=== PATIENT | female | born 1950 | race Caucasian/White ===

== ENCOUNTER → 2020-08-13 09:31 | Outpatient (BNVA) | payer MEDICARE, SELFPAY | PROVIDERS: Visit Provider Nurse Practitioner Family | DX: E03.9 Hypothyroidism, unspecified (principal) | CPT/HCPCS: 80061; 84443; 85025 ==

== ENCOUNTER 2020-09-02 20:00 | Outpatient (CLI) | payer MEDICARE, SELFPAY | END 2020-09-02 20:01 | disposition home or self-care (01) | LOC: SLEEP 09-03 08:52 | PROVIDERS: Visit Provider Nurse Practitioner Family | DX: G47.30 Sleep apnea, unspecified (principal) | CPT/HCPCS: 95810 ==

== ENCOUNTER 2020-10-09 20:00 | Outpatient (CLI) | payer MEDICARE, SELFPAY | END 2020-10-09 20:01 | disposition home or self-care (01) | LOC: SLEEP 10-10 08:14 | PROVIDERS: Visit Provider Nurse Practitioner Family | DX: G47.33 Obstructive sleep apnea (adult) (pediatric) (principal) | CPT/HCPCS: 95811 ==

== ENCOUNTER → 2020-12-06 09:05 | Outpatient (BNVA) | payer MEDICARE, SELFPAY | PROVIDERS: PCP Nurse Practitioner Family; Visit Provider Nurse Practitioner Family | DX: E78.1 Pure hyperglyceridemia (principal) | CPT/HCPCS: 84478 ==

== ENCOUNTER 2020-12-09 14:32 | Outpatient (CLI) | payer MEDICARE, SELFPAY ==
--- NOTE | 2020-12-09 14:45 | XRR_ITS ---
PROCEDURE INFORMATION: Exam: XR Left Knee Exam date and time: 12/09/2020 3:08 PM Age: 70 years old Clinical indication: Pain; Knee; Left; Patient HX: Arthritis per PT and getting worse; Additional info: M25.562 - pain in left knee TECHNIQUE: Imaging protocol: XR Left knee. Views: 3 views. COMPARISON: No relevant prior studies available. FINDINGS: Bones/joints: No fractures. Unremarkable alignment. Negative for joint effusion. Advanced osteoarthritis features throughout knee joint. Severe medial compartment joint space loss. Marginal osteophytes in each compartment. No aggressive bone lesion. Soft tissues: Normal. Vasculature: Scattered atherosclerotic wall plaque. XR/XR knee LT 3V* [id number] IMPRESSION: 1. Negative for acute left knee joint abnormality. 2. Severe osteoarthritis changes.
== END 2020-12-09 14:33 | disposition home or self-care (01) ==
PROVIDERS: PCP Nurse Practitioner Family; Visit Provider Nurse Practitioner Family
DX: M25.562 Pain in left knee (principal)
CPT/HCPCS: 73562

== ENCOUNTER 2020-12-31 15:52 | Outpatient (CLI) | payer MEDICARE, SELFPAY ==
--- NOTE | 2020-12-31 16:45 | MR_ITS ---
WS: [id number] MRI LEFT KNEE HISTORY: M25.562 - Pain in left knee COMPARISON: 12/09/2020 radiographs Anterior cruciate ligament: Increased signal and thinning of the ACL. There is fluid around the ACL w ithin the intercondylar notch Posterior cruciate ligament: Intact. Medial collateral ligament: Increased T2 signal around the MCL with mild separation of the MCL from t he tibia. No full-thickness tear. Posterior lateral corner structures: Intact. Medial menisci: Anterior and posterior horns are abnormal. Menisci are abnormal shape and signal with a very small truncated anterior horn and complex tears in the posterior horn towards the meniscal ro ot. Lateral meniscus: Blunting of the free edge of both the anterior and posterior horns most likely due to radial tears. Extensor mechanism: Distal quadriceps tendon and patellar tendons are intact. Fluid and soft tissue: Small suprapatellar joint effusion. Small Granger's cyst. Osseous and articular structures: Patellofemoral compartment: Mild narrowing of patellofemoral joint with small osteophytes. Complete l oss of cartilage. No marrow edema or fracture. Medial compartment: Moderate narrowing medial compartment with osteophytes from the joint line. Loss of cartilage with marrow edema on both sides of the joint. Partially extruded meniscus and osteophyte s displace the MCL. Lateral compartment: Moderate narrowing of the lateral compartment with loss of cartilage. Osteophyte s along the joint line. No marrow edema. There are osteophytes extend into the intercondylar notch of the femoral condyles which are contactin g the ACL and PCL. MR/MR knee LT wo con* [id number] IMPRESSION: 1. Moderate medial and lateral compartment internal derangement. 2. Complete to near complete loss of cartilage within the patellofemoral, medi al and lateral compartments. 3. Osteophytes from the femoral condyles extend into the intercondylar notch c ontacting the ACL and PCL. Most significantly involving the ACL where there is probably a partial tear. 4. Small Granger's cyst and small joint effusion. 5. Complex tears involving the anterior and posterior horns of the medial meni scus. 6. Blunting of the free edges both the anterior and posterior horns of the lat eral compartment, likely radial tears.
== END 2020-12-31 15:53 | disposition home or self-care (01) ==
PROVIDERS: PCP Nurse Practitioner Family; Visit Provider Nurse Practitioner Family
DX: M23.92 Unspecified internal derangement of left knee (principal); M25.762 Osteophyte, left knee; M71.22 Synovial cyst of popliteal space [Baker], left knee; S83.232A Complex tear of medial meniscus, current injury, left knee, initial encounter; X58.XXXA Exposure to other specified factors, initial encounter
CPT/HCPCS: 73721

== ENCOUNTER → 2021-01-02 12:51 | Outpatient (BNVA) | payer MEDICARE, SELFPAY | PROVIDERS: PCP Nurse Practitioner Family; Referring Provider Nurse Practitioner Family; Visit Provider Anesthesiology Pain Medicine | DX: G89.29 Other chronic pain (principal); M47.814 Spondylosis without myelopathy or radiculopathy, thoracic region; M54.9 Dorsalgia, unspecified; F17.210 Nicotine dependence, cigarettes, uncomplicated; Z79.899 Other long term (current) drug therapy | CPT/HCPCS: 99204 ==

== ENCOUNTER 2021-01-03 11:00 | Emergency (ER) | payer MEDICARE, SELFPAY ==
[2021-01-03 11:21] VITALS: BP 151/60; PULSE 58; RESP 16; TEMP 36.5; O2SAT 96; BMI 30.9
[2021-01-03 11:33] VITALS: BP 163/75; PULSE 60; RESP 16; O2SAT 98
--- NOTE | 2021-01-03 11:47 | XR_ITS ---
WS: [id number] PORTABLE CHEST HISTORY: weakness COMPARISON: None available. Mild hyperexpansion. No pleural effusion or pneumothorax. Cardiac size: Normal. Mediastinum/Aorta: Normal mediastinum. No osseous abnormality seen. XR/XR chest 1V portable [id number] IMPRESSION: Mild emphysema. No acute cardiopulmonary disease.
--- NOTE | 2021-01-03 11:52 | W.ED.GENADLT ---
HPI - General Adult General: Chief complaint: General Medical Stated complaint: rash Time Seen by Provider: 01/03/21 11:19 Source: patient Mode of arrival: ambulatory Limitations: no limitations History of Present Illness: HPI narrative: This is a 70-year-old female who has been having skin issues for about 2 years. She has been on topical steroids, first triamcinolone, then clobetasol. She has not obtained significant improvement. She has an appointment scheduled with a solar panel installation supervisor but is not until 4 months from now. She woke up today feeling tired, a little weak and short of breath. No fever, no cough, no chest pain. She is here to be evaluated. Associated symptoms: Reports short of breath and weakness; Deny chest pain, confusion, cough, diaphoresis, decreased appetite, dyspnea, fevers/chills, headache(s), malaise, nausea, rash, palpitations, seizures, syncope or vomiting Treatments prior to arrival: none Review of Systems General: Reports: 10 or more systems reviewed and unremarkable except in HPI and below Const: Denies: malaise or diaphoresis Card: Denies: chest pain, palpitations or syncope Resp: Denies: dyspnea GI: Denies: nausea or vomiting Skin/Breast: Denies: rash Neuro: Denies: headache(s) or confusion PFSH ED PFSH: Medical History Bipolar affect, depressed Fibromyalgia Hypothyroidism Psoriasis Thoracic degenerative disc disease Family History Grandmother Cancer Mother Cancer Other Hypertension Social History Smoking and tobacco status: current every day smoker cigarettes Alcohol intake: former Lives independently: Yes History of recent travel: No Physical Exam Const: COMMON NORMALS: no acute distress, average body habitus, patient oriented x3, no limitations, healthy appearing, alert and well nourished HENMT: COMMON NORMALS: normocephalic, atraumatic and moist oral mucous membranes HEAD & SCALP: normocephalic and atraumatic Neck/C-Spine: COMMON NORMALS: no meningeal signs and no JVD Resp: COMMON NORMALS: normal respiratory effort, No retractions, No use of accessory muscles, clear to auscultation bilaterally and percussion normal AUSCULTATION: clear to auscultation bilaterally PERCUSSION: percussion normal Cardio: COMMON NORMALS: no JVD, regular rate, regular rhythm, S1 normal heart sound present, S2 normal heart sound present, No gallops present (Cardio), No clicks present (Cardio), No murmurs present (Cardio), No rub (Cardio) and Peripheral pulses 2+ throughout RATE: regular rate RHYTHM: regular rhythm HEART SOUNDS: S1 normal heart sound present and S2 normal heart sound present PERIPHERAL PULSES: Peripheral pulses 2+ throughout GI: COMMON NORMALS: Normal to inspection, nondistended, normoactive bowel sounds present, Soft to palpation, non-tender, No hepatosplenomegaly present, no masses and no bruits PALPATION: Yes Soft to palpation and Yes No hepatosplenomegaly present Extremity: COMMON NORMALS: normal to inspection, full ROM, capillary refill normal, no calf tenderness and no pedal edema Neuro: COMMON NORMALS: patient oriented x3 SENSORIUM/ORIENTATION: Yes alert MENINGEAL SIGNS: Yes no meningeal signs Skin: COMMON NORMALS: no wounds, turgor normal, no jaundice, no petechiae and no mottling GENERAL SKIN EXAM: turgor normal RASHES: rashes noted plaque Rash type: Yes plaque Rash distribution: Yes symmetrical and Yes other (widespread) Rash color: Yes silvery and Yes erythematous base Rash shape: Yes round Rash consistency: Yes indurated Rash surface: Yes dry and Yes shiny Rash border: Yes raised and Yes sharp Rash tenderness: Yes nontender Rash findings consistent with: Yes psoriasis Course Reevaluation(s): Reevaluation #1: 70-year-old female patient who presents to the emergency department with a rash consistent with psoriasis. It significant on its widespread and she has an appointment with a solar panel installation supervisor but it is in 4 months. The sample case porter in the ED was able to get the appointment moved up by 2 months. She is advised that she probably needs some Biologics and for that she will need to see the solar panel installation supervisor. She voiced understanding and is in agreement with the plan. Time: 13:26 Vital Signs: Vital signs: Vital Signs Temperature 97.7 F 01/03/21 11:21 Pulse Rate 60 01/03/21 11:33 Respiratory Rate 16 01/03/21 11:33 Blood Pressure 163/75 01/03/21 11:33 Pulse Oximetry 98 01/03/21 11:33 MDM - General Adult MDM Narrative: Medical decision making narrative: 70-year-old female with clinical features consistent with psoriasis. She is on topical steroids. She has an appointment with a solar panel installation supervisor in 4 months and we were able to get it moved up by 2 months. She is advised to continue her current management and to follow-up with your solar panel installation supervisor for further evaluation and management. She likely needs Biologics. She also had nonspecific symptoms of feeling unwell today but evaluation in the emergency department does not show an acute cause for her symptoms. Medical Records: Attestation: I reviewed the patient's medical records. Lab Data: Attestation: I reviewed the patient's lab results. Labs: Lab Results 01/03/21 01/03/21 01/03/21 Range/Units 11:45 11:45 11:45 WBC 10.6 H (4.0-10.0) 10^3/ uL RBC 4.67 (4.1-5.3) 10^6/u L Hgb 14.7 (11.5-15.3) g/dL Hct 47.6 H (37.0-47.0) % MCV 101.9 H (81-99) fL MCH 31.5 (28.0-34.0) pg MCHC 30.9 (30.0-36.0) g/dL RDW 12.8 (12.1-15.1) % Plt Count 208 (130-400) 10^3/c mm MPV 12.4 H (7.4-10.4) fL Neut % (Auto) 60.1 % Lymph % (Auto) 29.2 % Will % (Auto) 5.5 % Eos % (Auto) 4.1 % Baso % (Auto) 0.9 % Neut # (Auto) 6.38 (1.8-7.7) 10^3/u L Lymph # (Auto) 3.1 (0.8-4.8) 10^3/u L Will # (Auto) 0.6 (0.2-0.9) 10^3/u L Eos # (Auto) 0.4 (0.0-0.8) 10^3/u L Baso # (Auto) 0.1 (0.0-0.1) 10^3/u L Nucleated RBC % (a uto) 0 % Nucleated RBCs # 0.0 /100WBC Sodium 141 (136-145) mmol/L Potassium 4.7 (3.5-5.1) mmol/L Chloride 103 (98-107) mmol/L Carbon Dioxide 27 (22-29) mmol/L Anion Gap 15.7 (5-19) BUN 16 (8-23) mg/dL Creatinine 1.0 H (0.5-0.9) mg/dL GFR Calculation 55.1 L (90-130) mL/min Glucose 104 (65-115) mg/dL Calculated Osmolal ity 293 (285-295) mOsm/k g Lactate 1.5 (0.5-2.2) mmol/L Calcium 9.5 (8.5-10.5) mg/dL Total Bilirubin 0.3 (0.15-1.2) mg/dL AST 16 (0-32) U/L ALT 16 (0-33) U/L Alkaline Phosphata se 96 (35-105) IU/L Creatine Kinase 85 (26-192) U/L C-Reactive Protein 9.7 H (0.0-4.9) mg/L Total Protein 7.6 (6.6-8.7) g/dL Albumin 4.8 (3.5-5.2) g/dL Globulin 2.8 (1.3-4.6) g/dL TSH 3.79 (0.27-4.20) uIU/ mL Urine Color (Yellow) Urine Appearance (CLEAR) Urine pH (5-7) Ur Specific Gravit y (1.005-1.030) Urine Protein (Negative) Urine Glucose (UA) (Normal) Urine Ketones (Negative) Urine Blood (Negative) Urine Nitrate (Negative) Urine Bilirubin (Negative) Urine Urobilinogen (Negative) mg/dL Ur Leukocyte Nazanin ase (Negative) 01/03/21 Range/Units 13:00 WBC (4.0-10.0) 10^3/ uL RBC (4.1-5.3) 10^6/u L Hgb (11.5-15.3) g/dL Hct (37.0-47.0) % MCV (81-99) fL MCH (28.0-34.0) pg MCHC (30.0-36.0) g/dL RDW (12.1-15.1) % Plt Count (130-400) 10^3/c mm MPV (7.4-10.4) fL Neut % (Auto) % Lymph % (Auto) % Will % (Auto) % Eos % (Auto) % Baso % (Auto) % Neut # (Auto) (1.8-7.7) 10^3/u L Lymph # (Auto) (0.8-4.8) 10^3/u L Will # (Auto) (0.2-0.9) 10^3/u L Eos # (Auto) (0.0-0.8) 10^3/u L Baso # (Auto) (0.0-0.1) 10^3/u L Nucleated RBC % (a uto) % Nucleated RBCs # /100WBC Sodium (136-145) mmol/L Potassium (3.5-5.1) mmol/L Chloride (98-107) mmol/L Carbon Dioxide (22-29) mmol/L Anion Gap (5-19) BUN (8-23) mg/dL Creatinine (0.5-0.9) mg/dL GFR Calculation (90-130) mL/min Glucose (65-115) mg/dL Calculated Osmolal ity (285-295) mOsm/k g Lactate (0.5-2.2) mmol/L Calcium (8.5-10.5) mg/dL Total Bilirubin (0.15-1.2) mg/dL AST (0-32) U/L ALT (0-33) U/L Alkaline Phosphata se (35-105) IU/L Creatine Kinase (26-192) U/L C-Reactive Protein (0.0-4.9) mg/L Total Protein (6.6-8.7) g/dL Albumin (3.5-5.2) g/dL Globulin (1.3-4.6) g/dL TSH (0.27-4.20) uIU/ mL Urine Color Yellow (Yellow) Urine Appearance Clear (CLEAR) Urine pH 5 (5-7) Ur Specific Gravit y 1.010 (1.005-1.030) Urine Protein Neg (Negative) Urine Glucose (UA) Norm (Normal) Urine Ketones Negative (Negative) Urine Blood Neg (Negative) Urine Nitrate Negative (Negative) Urine Bilirubin Neg (Negative) Urine Urobilinogen Norm (Negative) mg/dL Ur Leukocyte Nazanin ase Negative (Negative) Imaging Data^: CXR: Attestation: I personally reviewed and interpreted this imaging study as follows: Radiologist's impression: [address] [address] ReportSigned Patient: Nestor Hester #: [id number]: 1950cct#:[id number]/Sex: 70 / FADM Date: 01/03/21Loc: ERRoo/Bed:Attending Dr: Ordering Provider/Ordering MD: Carri Crow MD, [facility] [place] Date of Service: 01/03/21 Procedure(s): XR chest 1V portable [id number] Accession Number(s): [id number] Report Number: [id number] WS: [id number] PORTABLE CHEST HISTORY: weakness COMPARISON: None available. Mild hyperexpansion. No pleural effusion or pneumothorax. Cardiac size: Normal. Mediastinum/Aorta: Normal mediastinum. No osseous abnormality seen. XR/XR chest 1V portable [id number] IMPRESSION: Mild emphysema. No acute cardiopulmonary disease. Dictated By:Brigette Nails DOSigned By:Brigette Nails DOSigned Date/Time:01/03/21 1202DD/ 1158 Discharge Plan Discharge Patient Disposition: Home Clinical Impression: Psoriasis Condition: Stable Prescriptions: Continued simvastatin [Zocor] 40 mg tablet 40 mg PO DAILY Qty: 90 RF: 1 levothyroxine [Synthroid] 100 mcg tablet 100 mcg PO DAILY Qty: 90 RF: 1 diclofenac sodium 75 mg tablet,delayed release (DR/EC) 75 mg PO BID Qty: 180 RF: 1 tizanidine 2 mg tablet 2 mg PO Q8H PRN (Reason: muscle spasms) RF: 0 gabapentin 300 mg capsule 300 mg PO TID Qty: 90 RF: 0 aspirin 325 mg tablet 325 mg PO DAILY RF: 0 omeprazole 40 mg capsule,delayed release(DR/EC) 40 mg PO DAILY PRN (Reason: Acid Reflux) RF: 0 clobetasol 0.05 % cream 1 applic topical BID 14 Days Qty: 60 RF: 1 Discharge Orders: Discharge ED (Routine); Ordered 01/03/21 Ordered By: Carri Crow Referrals: Sonal Matt FNP [Primary Care Provider] - 1-3 days Discharge Diet: Usual diet Discharge Activity: Increase activity as tolerated Patient Instructions: Psoriasis (ED) Activity Restrictions/Additional Instructions: Return for any new or worsening symptoms. Continue your medications as prescribed. You will be contacted to schedule an appointment with dermatology and to see if we can get one sooner than April. Follow-up with your primary care provider within 3 days. Coding Level of Care Code ED Medical Communication Specialist for [employer] Fwd Exam Comprehensive
[2021-01-03 12:25] LABS: Basophils # 0.1 10^3/uL (0.0-0.1); Basophils % 0.9 %; Eosinophils # 0.4 10^3/uL (0.0-0.8); Eosinophils % 4.1 %; Hematocrit 47.6 % (37.0-47.0); Hemoglobin 14.7 g/dL (11.5-15.3); Lymphocytes # 3.1 10^3/uL (0.8-4.8); Lymphocytes % 29.2 %; Mean Corpuscular HGB Conc 30.9 g/dL (30.0-36.0); Mean Corpuscular Hemoglobin 31.5 pg (28.0-34.0); Mean Corpuscular Volume 101.9 fL (81-99); Mean Platelet Volume 12.4 fL (7.4-10.4); Monocytes # 0.6 10^3/uL (0.2-0.9); Monocytes % 5.5 %; Neutrophils # 6.38 10^3/uL (1.8-7.7); Neutrophils % 60.1 %; Nucleated Red Blood Cells % 0 %; Platelet Count 208 10^3/cmm (130-400); Red Blood Count 4.67 10^6/uL (4.1-5.3); Red Cell Distribution Width 12.8 % (12.1-15.1); White Blood Count 10.6 10^3/uL (4.0-10.0)
[2021-01-03 12:38] LABS: Lactate (Lactic Acid level) 1.5 mmol/L (0.5-2.2)
[2021-01-03 12:49] LABS: Alanine Aminotransferase 16 U/L (0-33); Albumin Level 4.8 g/dL (3.5-5.2); Alkaline Phosphatase 96 IU/L (35-105); Anion Gap 15.7 (5-19); Aspartate Amino Transferase 16 U/L (0-32); Blood Urea Nitrogen 16 mg/dL (8-23); C Reactive Protein 9.7 mg/L (0.0-4.9); Calcium 9.5 mg/dL (8.5-10.5); Carbon Dioxide 27 mmol/L (22-29); Chloride 103 mmol/L (98-107); Creatine Phosphokinase 85 U/L (26-192); Globulin 2.8 g/dL (1.3-4.6); Glomerular Filtration Rate 55.1 mL/min (90-130); Glucose 104 mg/dL (65-115); Osmolality Calculated 293 mOsm/kg (285-295); Potassium 4.7 mmol/L (3.5-5.1); Sodium 141 mmol/L (136-145); Thyroid Stimulating Hormone 3.79 uIU/mL (0.27-4.20); Total Bilirubin 0.3 mg/dL (0.15-1.2); Total Protein 7.6 g/dL (6.6-8.7)
[2021-01-03 13:07] LABS: Add Urine Microscopic? NO; Charge for UA Resulting for Rev
[2021-01-03 13:14] LABS: Bilirubin Urine Neg (Negative); Blood Urine Neg (Negative); Glucose Urine UA Norm (Normal); Ketones Urine Negative (Negative); Leukocyte Esterase Urine Negative (Negative); Nitrate Urine Negative (Negative); Protein Urine Neg (Negative); Urine Appearance Clear (CLEAR); Urine Color Yellow (Yellow); Urobilinogen Urine Norm (Negative); pH Urine 5 (5-7)
--- NOTE | 2021-01-03 14:16 | DCPLANNER ---
distributed generation project manager had message to schedule a follow up appointment for patient with dermatology. distributed generation project manager called the dermatology clinic, gave clinic patients information. A follow up appointment was scheduled for , March 06, 2021 at 3:[address] Fang. distributed generation project manager called patient and gave patient the appointment information.
--- NOTE | 2021-03-28 12:08 | DCPLANNER ---
Patient had a follow up appointment scheduled with dermatology - patient did attend appointment.
== END 2021-01-03 13:45 | disposition home or self-care (01) ==
PROVIDERS: Emergency Provider Family Medicine; PCP Nurse Practitioner Family
DX: L40.9 Psoriasis, unspecified (principal); Z79.82 Long term (current) use of aspirin; F17.210 Nicotine dependence, cigarettes, uncomplicated; E03.9 Hypothyroidism, unspecified
CPT/HCPCS: 71045; 80053; 81003; 82550; 83605; 84443; 85025; 86140; 96374; 99283; J2930

== ENCOUNTER → 2021-01-09 09:57 | Outpatient (BNVA) | payer MEDICARE, SELFPAY | PROVIDERS: PCP Nurse Practitioner Family; Visit Provider Nurse Practitioner Family | DX: L40.9 Psoriasis, unspecified (principal); M25.50 Pain in unspecified joint | CPT/HCPCS: 85651; 86038; 86431 ==

== ENCOUNTER → 2021-01-20 10:04 | Outpatient (BNVA) | payer MEDICARE, SELFPAY | PROVIDERS: PCP Nurse Practitioner Family; Visit Provider Anesthesiology Pain Medicine | DX: M54.9 Dorsalgia, unspecified (principal); M47.814 Spondylosis without myelopathy or radiculopathy, thoracic region; F17.210 Nicotine dependence, cigarettes, uncomplicated | CPT/HCPCS: 99213 ==

== ENCOUNTER 2021-02-03 09:20 | Outpatient (CLI) | payer MEDICARE, SELFPAY ==
[2021-02-03 10:05] LABS: Basophils # 0.1 10^3/uL (0.0-0.1); Basophils % 0.8 %; Eosinophils # 0.6 10^3/uL (0.0-0.8); Eosinophils % 5.7 %; Hematocrit 38.7 % (37.0-47.0); Lymphocytes # 2.1 10^3/uL (0.8-4.8); Lymphocytes % 18.4 %; Mean Corpuscular Hemoglobin 31.5 pg (28.0-34.0); Mean Corpuscular Volume 101.6 fL (81-99); Mean Platelet Volume 10.6 fL (7.4-10.4); Monocytes # 0.8 10^3/uL (0.2-0.9); Monocytes % 6.9 %; Neutrophils # 7.59 10^3/uL (1.8-7.7); Neutrophils % 67.8 %; Nucleated Red Blood Cells % 0 %; Platelet Count 201 10^3/cmm (130-400); Red Blood Count 3.81 10^6/uL (4.1-5.3); Red Cell Distribution Width 13.3 % (12.1-15.1); White Blood Count 11.2 10^3/uL (4.0-10.0)
[2021-02-03 10:25] LABS: Alanine Aminotransferase 11 U/L (0-33); Albumin Level 3.7 g/dL (3.5-5.2); Alkaline Phosphatase 83 IU/L (35-105); Anion Gap 12.4 (5-19); Aspartate Amino Transferase 13 U/L (0-32); Blood Urea Nitrogen 13 mg/dL (8-23); Calcium 9.5 mg/dL (8.5-10.5); Carbon Dioxide 30 mmol/L (22-29); Chloride 104 mmol/L (98-107); Chol HDL Ratio 2.83 mg/dL (0.0-4.40); Cholesterol 133 mg/dL (0-200); Globulin 2.5 g/dL (1.3-4.6); Glomerular Filtration Rate 55.1 mL/min (90-130); Glucose 112 mg/dL (65-115); HDL Cholesterol 47 mg/dL (60-100); LDL Cholesterol Calculated 48 mg/dL (50-129); LDL HDL Ratio 1.02 RATIO (0.00-3.22); Osmolality Calculated 295 mOsm/kg (285-295); Potassium 4.4 mmol/L (3.5-5.1); Sodium 142 mmol/L (136-145); Total Bilirubin 0.3 mg/dL (0.15-1.2); Total Protein 6.2 g/dL (6.6-8.7); Triglycerides 191 mg/dL (0-150); Uric Acid 8.5 mg/dL (2.4-5.7)
== END 2021-02-03 09:21 | disposition home or self-care (01) ==
LOC: LAB 09:31
PROVIDERS: PCP Nurse Practitioner Family; Visit Provider Dermatology
DX: L40.9 Psoriasis, unspecified (principal); Z79.899 Other long term (current) drug therapy
CPT/HCPCS: 36415; 80053; 80061; 83735; 84550; 85025

== ENCOUNTER → 2021-02-11 11:06 | Outpatient (BNVA) | payer MEDICARE, SELFPAY | PROVIDERS: PCP Nurse Practitioner Family; Visit Provider Nurse Practitioner Family | DX: Z20.822 Contact with and (suspected) exposure to COVID-19 (principal) | CPT/HCPCS: 87426 ==

== ENCOUNTER → 2021-03-04 09:18 | Outpatient (BNVA) | payer MEDICARE, SELFPAY | PROVIDERS: PCP Family Medicine; Visit Provider Internal Medicine Rheumatology | DX: L40.50 Arthropathic psoriasis, unspecified (principal); L40.0 Psoriasis vulgaris; Z79.899 Other long term (current) drug therapy; E79.0 Hyperuricemia without signs of inflammatory arthritis and tophaceous disease; J06.9 Acute upper respiratory infection, unspecified; Z71.89 Other specified counseling; L40.9 Psoriasis, unspecified; M19.90 Unspecified osteoarthritis, unspecified site; Z11.59 Encounter for screening for other viral diseases; Z11.1 Encounter for screening for respiratory tuberculosis | CPT/HCPCS: 36415; 72100; 72170; 73130; 73630; 86480; 86705; 86706; 86709; 86803; 87340; 87806; 99204 ==

== ENCOUNTER 2021-03-04 10:36 | Outpatient (CLI) | payer MEDICARE, SELFPAY ==
--- NOTE | 2021-03-04 10:53 | XR_ITS ---
WS: [id number] XR hand RT min 3V* [id number] REASON FOR EXAM: M19.90 - Unspecified osteoarthritis, unspecified site FINDINGS: Narrowing of the joint space with subchondral sclerosis involving the DIP and PIP joints of the thumb and fingers. There are large overhanging osteophytes in the third DIP. There is a more severe manifestation of the arthropathy in the metacarpal trapezius joint with signif icant sclerosis, deformity and subluxation. There is a large exostoses from the trapezius. No significant abnormalities of the periarticular soft tissues. No erosions noted. XR/XR hand RT min 3V* [id number] IMPRESSION: Arthropathy compatible with osteoarthritis.
--- NOTE | 2021-03-04 10:53 | XR_ITS ---
WS: [id number] XR foot LT min 3V* [id number] REASON FOR EXAM: M19.90 - Unspecified osteoarthritis, unspecified site FINDINGS: Joint space narrowing and subchondral sclerosis in the DIP and MIP joints of the toes. Mild medial angulation at the carpal metacarpal joint of the great toe with similar arthropathic armendariz ge. No erosions. No periarticular soft tissue abnormality. The bony and joint spaces of the mid and hindfoot are intact. XR/XR foot LT min 3V* [id number] IMPRESSION: Arthropathy of the toes compatible with osteoarthritis.
--- NOTE | 2021-03-04 10:53 | XR_ITS ---
WS: [id number] XR foot RT min 3V* [id number] REASON FOR EXAM: M19.90 - Unspecified osteoarthritis, unspecified site FINDINGS: Joint space narrowing with subchondral sclerosis in the DIP and MIP joints of toes. Previous osteotomy with screw fixation of the distal first metatarsal. Similar arthropathic changes a t the first metatarsal-phalangeal joint. No erosions or periarticular soft tissue abnormality. The bony and joint structures of the midfoot and hindfoot are intact. XR/XR foot RT min 3V* [id number] IMPRESSION: Arthropathy compatible with osteoarthritis.
--- NOTE | 2021-03-04 10:53 | XR_ITS ---
WS: [id number] XR hand LT min 3V* [id number] REASON FOR EXAM: M19.90 - Unspecified osteoarthritis, unspecified site FINDINGS: Mild joint space narrowing with subchondral sclerosis involving the DIP and MIP joints of the fingers and thumb. No focal erosions or other focal bony abnormality. No periarticular soft tissue abnormality. Similar arthropathy in the metacarpal trapezial is joint of the thumb with more significant joint spa ce narrowing, sclerosis, and subluxation. XR/XR hand LT min 3V* [id number] IMPRESSION: Arthropathy compatible with osteoarthritis.
--- NOTE | 2021-03-04 10:53 | XR_ITS ---
WS: [id number] XR pelvis 1-2V* [id number] REASON FOR EXAM: M19.90 - Unspecified osteoarthritis, unspecified site FINDINGS: Mild narrowing of the hip joint spaces bilaterally. Mild osteophytic spurring and subchondral scleros is of the acetabula and femoral heads. No focal bone lesion. No soft tissue abnormality. XR/XR pelvis 1-2V* [id number] IMPRESSION: Mild changes of osteoarthropathy of the hip joints as above.
--- NOTE | 2021-03-04 10:53 | XR_ITS ---
WS: [id number] XR lumbar spine 2-3V* [id number] REASON FOR EXAM: M19.90 - Unspecified osteoarthritis, unspecified site FINDINGS: No significant lumbar vertebral body compression deformity. Mild rotatory scoliosis of the lumbar spine convex right. Mild/moderate narrowing of the intervertebr al disc spaces L1-S1, most prominent at L5-S1. Moderate degenerative changes in the facet joints L4-L5 and L5-S1. 5 mm of anterolisthesis of L5 on S1 which appears to be secondary to spondylolysis at L5-S1. XR/XR lumbar spine 2-3V* [id number] IMPRESSION: Degenerative lumbar disc disease as above. Spondylolisthesis and spondylolysis at L5-S1 as above.
[2021-03-04 12:39] LABS: HIV 1 & 2 Antibody Non-Reactive (Non-Reactiv); HIV 1 & 2 Antigen Non-Reactive (Non-Reactiv)
[2021-03-04 12:50] LABS: Hepatitis A Antibody IgM Non-Reactive (Nonreactive); Hepatitis B Core AB, Total Non-Reactive (Nonreactive); Hepatitis B Surface Antigen Non-Reactive (Nonreactive); Hepatitis C Virus Antibody Non-Reactive (Nonreactive)
[2021-03-04 12:57] LABS: Hepatitis B Surface AB < 3.5 (11.5-1000)
[2021-03-06 15:42] LABS: Quantiferon Mitogen >10.00 IU/mL; Quantiferon Nil 0.03 IU/mL; Quantiferon Plus TB1 0.01 IU/mL; Quantiferon Plus TB2 0.01 IU/mL; Quantiferon TB Gold NEGATIVE (NEGATIVE)
== END 2021-03-04 10:37 | disposition home or self-care (01) ==
LOC: RAD 10:48
PROVIDERS: PCP Family Medicine; Referring Provider Dermatology; Visit Provider Internal Medicine Rheumatology
DX: L40.9 Psoriasis, unspecified (principal); M19.90 Unspecified osteoarthritis, unspecified site; Z79.899 Other long term (current) drug therapy; Z11.59 Encounter for screening for other viral diseases; Z11.1 Encounter for screening for respiratory tuberculosis
CPT/HCPCS: 36415; 72100; 72170; 73130; 73630; 86480; 86705; 86706; 86709; 86803; 87340; 87806

== ENCOUNTER 2021-04-17 13:47 | Outpatient (CLI) | payer MEDICARE, SELFPAY ==
[2021-04-17 14:11] LABS: Basophils # 0.1 10^3/uL (0.0-0.1); Basophils % 0.7 %; Eosinophils # 0.5 10^3/uL (0.0-0.8); Eosinophils % 5.5 %; Hematocrit 41.8 % (37.0-47.0); Hemoglobin 13.1 g/dL (11.5-15.3); Lymphocytes # 2.8 10^3/uL (0.8-4.8); Lymphocytes % 28.2 %; Mean Corpuscular HGB Conc 31.3 g/dL (30.0-36.0); Mean Corpuscular Hemoglobin 31.2 pg (28.0-34.0); Mean Corpuscular Volume 99.5 fl (81-99); Mean Platelet Volume 10.7 fL (7.4-10.4); Monocytes # 0.7 10^3/uL (0.2-0.9); Monocytes % 6.6 %; Neutrophils # 5.77 10^3/uL (1.8-7.7); Neutrophils % 58.7 %; Nucleated Red Blood Cells % 0 %; Platelet Count 189 10^3/cmm (130-400); Red Cell Distribution Width 13.2 % (12.1-15.1); White Blood Count 9.8 10^3/uL (4.0-10.0)
[2021-04-17 14:39] LABS: Alanine Aminotransferase 22 U/L (0-33); Alkaline Phosphatase 85 IU/L (35-105); Anion Gap 14.1 (5-19); Aspartate Amino Transferase 22 U/L (0-32); Blood Urea Nitrogen 14 mg/dL (8-23); Calcium 8.9 mg/dL (8.5-10.5); Carbon Dioxide 26 mmol/L (22-29); Chloride 101 mmol/L (98-107); Globulin 3.1 g/dL (1.3-4.6); Glomerular Filtration Rate 62.3 mL/min (90-130); Glucose 86 mg/dL (65-115); Osmolality Calculated 284 mOsm/kg (285-295); Potassium 4.1 mmol/L (3.5-5.1); Sodium 137 mmol/L (136-145); Total Bilirubin 0.2 mg/dL (0.15-1.2); Total Protein 7.1 g/dL (6.6-8.7)
== END 2021-04-17 13:48 | disposition home or self-care (01) ==
LOC: LAB 13:54
PROVIDERS: PCP Family Medicine; Visit Provider Dermatology
DX: L40.0 Psoriasis vulgaris (principal); Z79.899 Other long term (current) drug therapy
CPT/HCPCS: 36415; 80053; 85025

== ENCOUNTER → 2021-04-25 10:28 | Outpatient (BNVA) | payer MEDICARE, SELFPAY | PROVIDERS: PCP Family Medicine; Visit Provider Anesthesiology Pain Medicine | DX: G89.29 Other chronic pain (principal); M47.814 Spondylosis without myelopathy or radiculopathy, thoracic region | CPT/HCPCS: 99213 ==

== ENCOUNTER → 2025-05-08 09:16 | Outpatient (BNVA) | payer MEDICARE, SELFPAY | PROVIDERS: PCP Family Medicine; Visit Provider Dermatology | DX: L40.0 Psoriasis vulgaris (principal); L82.1 Other seborrheic keratosis; Z79.899 Other long term (current) drug therapy; B07.8 Other viral warts; L57.0 Actinic keratosis | CPT/HCPCS: 17000; 17110; 99204 ==

== ENCOUNTER → 2025-06-07 09:51 | Outpatient (BNVA) | payer MEDICARE, SELFPAY | PROVIDERS: PCP Family Medicine; Visit Provider Dermatology | DX: L40.0 Psoriasis vulgaris (principal); Z79.899 Other long term (current) drug therapy | CPT/HCPCS: 99214 ==

== ENCOUNTER 2025-07-16 14:15 | Outpatient (CLI) | payer MEDICARE, SELFPAY ==
--- NOTE | 2025-07-16 14:19 | CT_ITS ---
WS: [id number] LDCT LUNG CANCER SCREENING HISTORY: NICOTINE DEPENDENCE, CIGARETTES TECHNIQUE: Axial imaging performed from the apices to 1 cm below the costophrenic angles. Coronal and sagittal reformats are submitted with axial MIP series. All CT scans at [facility] use at least one of these dose optimization techniques: automated exposure control; mA and/or kV adjustment per patient size (includes targeted exams where dose is matched to clinical indication); or iterative reconstruction. DLP: 65.12 mGy.cm DIvol: Mean CTDIvol: 1.40 (mGy) COMPARISON: None available. Diagnostic quality: Satisfactory Lungs: Mild pleural scarring at the lung apices. Small peripheral micronodules. No dominant mass. 10 mm groundglass nodule RIGHT upper lobe. Thin linear atelectasis versus scarring at the lung bases. Small amount of mucus in the trachea. Heart: Normal size heart with no pericardial effusion.. Other findings: Mild atherosclerosis aorta. No mediastinal or hilar adenopathy. No pericardial or pleural effusions. No hiatal hernia. Prior cholecystectomy. Negative adrenal glands. Moderate thoracic spondylosis. CT/CT lung screening [id number] IMPRESSION: LUNG-RADS: 2-Benign Appearance or Behavior FOLLOW UP: 12 Month: Continue annual screening with LDCT OTHER FINDINGS (S MODIFIER): None.
== END 2025-07-16 14:16 | disposition home or self-care (01) ==
LOC: RAD 14:16
PROVIDERS: PCP Family Medicine; Visit Provider Registered Nurse
DX: Z12.2 Encounter for screening for malignant neoplasm of respiratory organs (principal); F17.210 Nicotine dependence, cigarettes, uncomplicated; R91.1 Solitary pulmonary nodule; I70.0 Atherosclerosis of aorta; Z90.49 Acquired absence of other specified parts of digestive tract; M47.814 Spondylosis without myelopathy or radiculopathy, thoracic region; J98.11 Atelectasis; R09.3 Abnormal sputum
CPT/HCPCS: 71271